=== PATIENT | female | born 2000 | race Caucasian/White ===

== ENCOUNTER 2023-12-23 03:03 | Emergency (ER) | payer BC ==
[2023-12-23 03:11] VITALS: BP 122/72; PULSE 74; RESP 17; TEMP 98.9; BMI 27.8
[2023-12-23] MEDS ORDERED: morphine CARPU-JECT 4 MG/1 ML DISP.SYRIN IVPUSH ONE (03:19)
[2023-12-23] MEDS ORDERED: ONDANSETRON 4 MG/2 ML VIAL IVPUSH ONE (03:20)
[2023-12-23] MEDS ORDERED: SODIUM CHLORIDE 0.9% 500 ML INFUS.BAG IV ONE (03:22)
[2023-12-23] MEDS ORDERED: ONDANSETRON 4 MG/2 ML VIAL ONE (03:25)
[2023-12-23 04:35] LABS: BASO % 0.5 % (0-2.0); EOS % 1.9 % (0-4.5); HEMATOCRIT 35.7 % (32.4-45.2); HEMOGLOBIN 12.2 GM/dL (10.7-15.3); LYMPH % 23.8 % (8-40); MCH 30.9 pg (25.7-33.7); MCHC 34.3 g/dl (32.0-36.0); MEAN CELL VOLUME 90.1 fl (80-96); MEAN PLT VOLUME 10.2 fl (7.5-11.1); MONO % 6.5 % (3.8-10.2); NEUT % 67.3 % (42.8-82.8); PLATELET COUNT 211 10^3/uL (134-434); RBC 3.96 M/mm3 (3.60-5.2); RDW 12.3 % (11.6-15.6); WHITE BLOOD COUNT 9.2 K/mm3 (4.0-10.0)
[2023-12-23 04:46] LABS: EPI CELLS 6 /uL (0-25.1); HYALINE CASTS 3 /uL (0-3.1); URINE APPEARANCE CLOUDY; URINE BACTERIA >9,000 /uL (0-1359); URINE BILIRUBIN NEGATIVE (NEGATIVE); URINE COLOR YELLOW; URINE GLUCOSE (UA) NEGATIVE (NEGATIVE); URINE KETONE TRACE (NEGATIVE); URINE LEUK ESTERASE 2+ (NEGATIVE); URINE NITRITE POSITIVE (NEGATIVE); URINE PROTEIN 2+ (NEGATIVE); URINE RBC 16212 /uL (0-23.9); URINE WBC 876 /uL (0-25.8)
[2023-12-23 04:54] LABS: POTASSIUM 3.9 mmol/L (3.5-5.1)
[2023-12-23 04:56] LABS: CALCIUM 8.7 mg/dL (8.5-10.1)
[2023-12-23 04:57] LABS: ALBUMIN 4.1 g/dl (3.4-5.0); BLOOD UREA NITROGEN 15.1 mg/dL (7-18)
[2023-12-23] MEDS ORDERED: CEFTRIAXONE 1,000 MG in DEXTROSE 5%-WATER - 50 ML IVPB STA (04:57)
[2023-12-23 05:00] LABS: CREATININE 0.7 mg/dL (0.55-1.3)
[2023-12-23 05:01] LABS: BILIRUBIN,TOTAL 0.4 mg/dL (0.2-1)
[2023-12-23] MEDS ORDERED: KETOROLAC TROMETHAMINE 30 MG/1 ML VIAL IVPUSH ONE (05:14)
[2023-12-23] MEDS ORDERED: ALBUTEROL SO4 2.5/IPRATROPIUM 0.5 INH SOL 3 ML VIAL.NEB. NEB ONE (05:16)
[2023-12-23] MEDS ORDERED: methylPREDNISolone NA SUCC 125 MG/2 ML VIAL ONE (05:16)
[2023-12-23] MEDS ORDERED: HYDROmorphone HCl 2 MG/ML VIAL IVPUSH STA (05:29)
[2023-12-23] MEDS ORDERED: HYDROmorphone HCL/PF 1 MG/ML VIAL ONE (05:32)
[2023-12-23] MEDS ORDERED: cefTRIAXone SODIUM 1 GM VIAL ONE (05:33)
== END 2023-12-23 08:03 | disposition home or self-care (01) ==
LOC: FER 03:03
PROC: 3E03329 Introduction of Other Anti-infective into Peripheral Vein, Percutaneous Approach (ICD-10-PCS; principal; 2023-12-23)
PROC: 3E033GC Introduction of Other Therapeutic Substance into Peripheral Vein, Percutaneous Approach (ICD-10-PCS; 2023-12-23)
PROC: 3E033GC Introduction of Other Therapeutic Substance into Peripheral Vein, Percutaneous Approach (ICD-10-PCS; 2023-12-23)
PROC: 3E033GC Introduction of Other Therapeutic Substance into Peripheral Vein, Percutaneous Approach (ICD-10-PCS; 2023-12-23)
DX: N30.00 Acute cystitis without hematuria (principal); R10.31 Right lower quadrant pain; R35.0 Frequency of micturition; R30.9 Painful micturition, unspecified; R39.11 Hesitancy of micturition
CPT/HCPCS: 36415; 74177-TC; 80053; 81003; 84703; 85025; 87086; 87186; 99285-25; Q9967